=== PATIENT | male | born 1940 | race Caucasian/White ===

== ENCOUNTER 2016-11-22 10:51 | Inpatient (IN) | payer OTHER ==
[~2016-11-22] VITALS: Ht 167.6 cm; Wt 66.7 kg
[~2016-11-22 10:51] MED LIST: ASPIRIN CHILDRE81 MG PO; COLACE100 MG PO; FEOSOL65 MG PO; FISH OIL CONC1000 MG PO; IRON325 M1 PO; MIRTAZAPINE45 MG PO; MULTIVITAMIN1 TAB PO; PERCOCET 325 MG1 TA2 PO; PROS5 PO; ROXICODONE5 MG PO; SUPER B COMPLEX PO; TOPCARE OMEPRAZ20 MG PO; TYLENOL500 MG PO; VITAMIN C500 M3 PO; VITAMIN D31000 IU PO; ZIAC 5 MG-6.251 TAB PO
--- NOTE | 2016-11-22 11:00 | NUR ---
PT TO ED C/O LT SIDED ABD PAIN X1 WEEK. DENIES ANY N/V. NOTED PAIN WITH PALPATION, DENIES ANY INJURY. PT IS VERY [place]. DENIES ANY MED HX.
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
--- NOTE | 2016-11-22 12:22 | NUR ---
PT TO ROOM 22 IN W/C, MATILDE DUMONT AT BEDSIDE FOR EVAL
[2016-11-22 13:03] LABS: ABSOLUTE BASOPHIL COUNT 0 /CUMM (0.0-0.2); ABSOLUTE EOSINOPHIL COUNT 0 /CUMM (0.0-0.7); ABSOLUTE GRANULOCYTE CT 6.2 /CUMM (1.4-6.5); ABSOLUTE LYMPH COUNT 0.8 /CUMM (1.2-3.4); ABSOLUTE MONOCYTE COUNT 0.8 /CUMM (0.10-0.60); BASOPHIL % 0.3 % (0.0-2.0); EOSINOPHIL % 0.2 % (0-5); GRANULOCYTE % 79.4 % (42.2-75.2); HEMATOCRIT 33.6 % (42-52); MEAN CORPUSCULAR HGB 29.3 PG (27.0-31.0); MEAN CORPUSCULAR HGB CONC 33.2 G/DL (33.0-37.0); MEAN CORPUSCULAR VOLUME 88.1 FL (80.0-94.0); MEAN PLATELET VOLUME 7.8 FL (7.4-10.4); PLATELET COUNT 225 /CUMM (130-400); RBC DISTRIBUTION WIDTH 15.8 % (11.5-14.5); RED BLOOD CELL CT 3.81 /CUMM (4.70-6.10); WHITE BLOOD CELL COUNT 7.9 /CUMM (4.8-10.8)
--- NOTE | 2016-11-22 13:15 | NUR ---
PT SEEN BY DR PHILIPPE. STATING HE CANNOT PROVIDE URINE SAMPLE AT THIS TIME.
--- NOTE | 2016-11-22 13:41 | NUR ---
CRITICAL TEST RESULTS [id number] SHANNAN COLMENARES 76 Vanes[address] TESTS AND RESULTS: LACTIC 2.1 Results received and read back by: ELENI LEE Results received date and time: 11/22/16 1341 The following provider was notified of the results, and read the results back: MATILDE DUMONT Notified date and time: 11/22/16 at 1340
--- NOTE | 2016-11-22 14:08 | NUR ---
PT TO CT SCAN. IVF INFUSING.
--- NOTE | 2016-11-22 15:12 | CT SCAN REPORT ---
EXAMINATION: CT ABDOMEN AND PELVIS WITHOUT CONTRAST CLINICAL INFORMATION: Left-sided pain, evaluate for diverticulitis. History of lymphoma. COMPARISON: 10/21/2008. TECHNIQUE: Multidetector volumetric imaging was performed from the superior aspect of the liver through the pubic symphysis. Sagittal and coronal reformatted images were obtained on the technologist's workstation. DLP: 321 mGy-cm FINDINGS: LUNG BASES: The heart appears mildly enlarged with extensive atherosclerotic coronary calcification. There is bibasilar atelectasis left side greater than right. LIVER AND SPLEEN: Unremarkable. PANCREAS GALLBLADDER AND BILIARY TREE: The pancreas and biliary tree appear unremarkable in this postcholecystectomy patient. KIDNEYS, URETERS, AND ADRENALS: There are postsurgical changes consistent with a right-sided nephrectomy. No focal left-sided renal masses are seen. A small exophytic left upper pole renal cyst is again noted. Tiny calcifications are likely vascular. URINARY BLADDER: Unremarkable. GI TRACT: Stomach and small bowel appear unremarkable. There are postsurgical changes suggesting a previous right-sided hemicolectomy with an anastomosis in the transverse colon which appears widely patent without evidence of small bowel obstruction. There is extensive diverticulosis throughout the remaining left colon with mild inflammatory changes in the mid to distal descending colon on the left side most consistent with acute diverticulitis without evidence of a focal fluid collection to suggest an abscess at this time. PERITONEAL CAVITY: There is no intraperitoneal free air or free fluid identified at this time. RETROPERITONEUM: There is extensive atherosclerotic aortic calcification without aneurysmal dilatation, post right-sided nephrectomy changes, there is no evidence of lymphadenopathy. PELVIC ORGANS: Prostate appears moderately enlarged. Urinary bladder unremarkable. OSSEOUS STRUCTURES: No focal destructive or sclerotic osseous lesions are identified. There are chronic-appearing L1 and L3 central compression deformities unchanged. There is an old healed inferior pubic ramus fracture on the right. ANTERIOR ABDOMINAL WALL AND SOFT TISSUES: Unremarkable without evidence of an underlying hernia or adenopathy. IMPRESSION: 1. Postsurgical changes with extensive diverticulosis of the left colon with findings most consistent with acute diverticulitis in the mid distal descending colon. 2. Other findings as noted.
--- NOTE | 2016-11-22 15:25 | NUR ---
BLOOD DRAWN AND SENT TO LAB 1 ESPIN[facility]
--- NOTE | 2016-11-22 16:20 | NUR ---
HOUSE STAFF AT BEDSIDE. URINE TRIO SENT.
--- NOTE | 2016-11-22 16:48 | PN- Att Addend ---
Attending MD Review Statement Attending Statement Attending MD Statement: examined this patient, discuss w/resident/PA/EMERGENCY DEPARTMENT AIDE, agreed w/resident/PA/EMERGENCY DEPARTMENT AIDE, reviewed EMR data (avail), discussed w/nursing Attending Assessment/Plan: 76 yr old male with pmh of colon cancer s/p colostomy which was reversed in the past presented to the ED with c/c of abdominal pain left side going on for one week. Pt says that the pain became worse last night and he could not sleep. Pt also complained of nausea and chills. CT scan in ER shows diverticulitis. ER gave rocephin and flagyl. Acute diverticulitis- admit to medicine. Pt does not f/u with his pcp. start on ceftriaxone and flagyl. Keep on clear liquid diet for now. Zofran prn for nausea. Prn pain meds . will need outpt GI f/u once diverticulitis resolves to have a f/u colonoscopy. d/w pt the care plan.
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
--- NOTE | 2016-11-22 16:56 | Admission Certification ---
Admission Certification Certification Statement - As attending physician, I certify that at the time of - admission, based on clinical presentation, severity of - symptoms, need for further diagnostic testing and - therapeutic interventions, and risk of adverse outcomes - without in-hospital treatment, in my clinical assessment, - this patient requires an acute hospital stay for a minimum - of two nights or longer. I have also considered psychsocial - factors such as support system, advanced age, financial - issues, cognitive issues, and failed out-patient treatments, - past re-admission history, safety of patient, and lack of - compliance as applicable. Specific rationale supporting this admission is: acute diverticulitis in pt with pmh of colon cancer and nausea unable to tolerate po
--- NOTE | 2016-11-22 18:04 | NUR ---
AWAITING BED ASSIGNMENT. REFUSES ZOFRAN OR PAIN MEDS, AWARE OF PRN ORDERS. ALSO REFUSING PO, WATER AND JUICE PROVIDED AT BEDSIDE. USING URINAL INDEPENDENTLY PRN. NO COMPLAINTS.
--- NOTE | 2016-11-22 18:32 | NUR ---
PT ASSIGNED TO ROOM 209 BED 1
--- NOTE | 2016-11-22 19:08 | NUR ---
REPORT CALLED TO [facility] ON [facility], BED IS READY, TRANSPORT BOOKED. PT AWARE OF PENDING TRANSFER, NO COMPLAINTS, CONTS TO DECLINE PRN MEDS.
[2016-11-22 20:02] VITALS: BP 140/90
--- NOTE | 2016-11-22 20:49 | NUR ---
RECEIVED PATIENT FROM ED. ALERT AND ORIENTED TIMES 3, VSS, AFEBRILE. PT [place]. 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 DID NOT BRING TO HOSPITAL. LUNG SOUNDS CLEAR, ON RA. NO FALL HISTORY. LIVES INDEPENDENTLY. SCAR TO ABDOMEN FROM PREVIOUS SURGERY. TENDER IN [place]. DOES NOT WANT ANY PAIN MEDS AT THIS TIME. SKIN INTACT, LUNG SOUNDS CLEAR. ORIENTED TO 2NB, CALL [facility] WITHIN REACH
[2016-11-22 22:21] VITALS: BP 138/86
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
[2016-11-23 07:34] VITALS: BP 128/62
[2016-11-23 08:48] LABS: ABSOLUTE BASOPHIL COUNT 0 /CUMM (0.0-0.2); ABSOLUTE EOSINOPHIL COUNT 0 /CUMM (0.0-0.7); ABSOLUTE GRANULOCYTE CT 5.4 /CUMM (1.4-6.5); ABSOLUTE MONOCYTE COUNT 0.6 /CUMM (0.10-0.60); BASOPHIL % 0.2 % (0.0-2.0); EOSINOPHIL % 0.7 % (0-5); GRANULOCYTE % 77.2 % (42.2-75.2); HEMATOCRIT 29.2 % (42-52); MEAN CORPUSCULAR HGB 29.1 PG (27.0-31.0); MEAN CORPUSCULAR HGB CONC 33.2 G/DL (33.0-37.0); MEAN CORPUSCULAR VOLUME 87.7 FL (80.0-94.0); MEAN PLATELET VOLUME 8.6 FL (7.4-10.4); PLATELET COUNT 199 /CUMM (130-400); RBC DISTRIBUTION WIDTH 16.1 % (11.5-14.5); RED BLOOD CELL CT 3.33 /CUMM (4.70-6.10); WHITE BLOOD CELL COUNT 7.1 /CUMM (4.8-10.8)
[2016-11-23 13:45] VITALS: BP 138/70
--- NOTE | 2016-11-23 21:21 | NUR ---
ALERT AND ORIENTED X 3. ON ROOM AIR. NO SHORTNESS OF BREATH NOTED VITAL SIGNS STABLE. DENIES CHEST PAIN. + PULSES. DENIES NUMBNESS/TINGLING SKIN C/D/I. WEAK GAIT NOTED. PATIENT HARD OF HEARING. PATIENT RESTING AT THIS TIME. WILL CONTINUE TO MONITOR
[2016-11-23 21:54] VITALS: BP 140/60
[2016-11-24 02:57] LABS: ABSOLUTE BASOPHIL COUNT 0 /CUMM (0.0-0.2); ABSOLUTE EOSINOPHIL COUNT 0.1 /CUMM (0.0-0.7); ABSOLUTE GRANULOCYTE CT 5.4 /CUMM (1.4-6.5); ABSOLUTE LYMPH COUNT 1.7 /CUMM (1.2-3.4); ABSOLUTE MONOCYTE COUNT 0.7 /CUMM (0.10-0.60); BASOPHIL % 0 % (0.0-2.0); EOSINOPHIL % 0.9 % (0-5); GRANULOCYTE % 68.5 % (42.2-75.2); HEMATOCRIT 31.7 % (42-52); MEAN CORPUSCULAR HGB 28.8 PG (27.0-31.0); MEAN CORPUSCULAR HGB CONC 32.5 G/DL (33.0-37.0); MEAN CORPUSCULAR VOLUME 88.4 FL (80.0-94.0); MEAN PLATELET VOLUME 7.8 FL (7.4-10.4); PLATELET COUNT 224 /CUMM (130-400); RBC DISTRIBUTION WIDTH 15.9 % (11.5-14.5); RED BLOOD CELL CT 3.59 /CUMM (4.70-6.10); WHITE BLOOD CELL COUNT 7.9 /CUMM (4.8-10.8)
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
[2016-11-24 03:11] VITALS: BP 110/58
--- NOTE | 2016-11-24 04:06 | NUR ---
PT TRANSFERED FROM 2NB. PT ALERT AND ORIENTED, OSAGE. 2l NC. DENIES SOB. lcta. VSS. C/O RIGHT CHEST PAIN. SINUS TACH ON THE MONITOR. _+ BS X 4. SKIN CDI. STAT CTA ORDERED. IV #20 IN LAC EXTABLISHED. PT DOWN TO CAT SCAN. WILL CONTINUE TO MONITOR.
--- NOTE | 2016-11-24 04:14 | RADIOLOGY REPORT ---
EXAMINATION: XR PORTABLE CHEST CLINICAL INFORMATION: Atelectasis and effusion. COMPARISON: CT abdomen and pelvis 11/22/2016. TECHNIQUE: Portable AP semiupright view of the chest was obtained. FINDINGS: Lung volumes are low and there are ill-defined bibasilar airspace opacities, greater on the left side which most likely represent a manifestation of subsegmental atelectasis. Small left effusion is suspected. The cardiac silhouette and upper mediastinal contours unremarkable. No acute osseous finding. IMPRESSION: Lung volumes are low and there is bibasilar subsegmental atelectasis. Possible small left effusion. No evidence of overt consolidative disease.
--- NOTE | 2016-11-24 05:44 | CT SCAN REPORT ---
EXAMINATION: CT ANGIOGRAM OF THE CHEST WITH AND WITHOUT CONTRAST (CT PULMONARY ANGIOGRAM FOR PE) CLINICAL INFORMATION: Tachycardia and shortness of breath. Suspected acute pulmonary embolism. COMPARISON: Chest radiograph 11/16/2016. TECHNIQUE: Prior to contrast administration, noncontrast localization images were obtained. Subsequently, multidetector volumetric imaging was performed from the thoracic inlet to below the diaphragms following the administration of 72 mL Optiray 350 intravenous contrast. No contrast reaction reported. Sagittal, coronal, and MIP oblique sagittal reformatted images were obtained on the CT workstation, uploaded to PACS, and reviewed. Total exam dose-length product 467.99 mGy-cm. FINDINGS: The timing of the contrast injection provides adequate opacification of the pulmonary arteriovascular. There is no central luminal filling defect to suggest the presence of an acute pulmonary embolism. Lung volumes are low and there is mild dependent subsegmental atelectasis. No overt consolidative disease or effusion. No pneumothorax. The trachea and major airways are patent. There is a small eccentric nodular lesion involving the left mainstem bronchus best illustrated on axial image 186 of 491 series 3. Grossly there are no pathologically enlarged peribronchial, mediastinal, or axillary lymph nodes. The chest wall is grossly intact. Numerous old healed right rib fractures are noted and there is an old healed left clavicular fracture. Extrathoracic soft tissues are unremarkable. Limited visualization of the upper abdomen reveals chronic changes of a right nephrectomy. Adrenal glands are normal. IMPRESSION: There is no evidence of acute pulmonary embolism. No discrete abnormal finding to provide an explanation for this patient's tachycardia and shortness of breath. Lung volumes are low and there is bibasilar subsegmental atelectasis with no evidence of overt consolidation, effusion, or pneumothorax. Of note there is an eccentric nodular lesion involving the left mainstem bronchus that is suspected to represent a small focus of aspirated fluid or debris. The possibility of a polyp or other airway mass cannot be definitively excluded on the basis of this examination. VTE: Negative.
--- NOTE | 2016-11-24 08:50 | NUR ---
AT 0200, THIS SN ENTERED PATIENT ROOM TO EMPTY URINAL. PATIENT IS VERY HARD OF HEARING AND DID NOT HEAR SN ENTER. PATIENT WAS STARTLED AND SAT FORWARD QUICKLY. THEN GRABBED AT HIS RIGHT CHEST AND GRIMACED. PATIENT CONTINUED TO HAVE COMPLAINT OF SEVERE PAIN AFTER 2-3 MINUTES SO VITALS WERE TAKEN AND BP WAS 158/80, HR 101, 92% ON ROOM AIR, 20 RR AND TEMP 98.7. PRODUCTION TRAINER AND MOD WERE CALLED AND PRODUCTION TRAINER ARRIVED TO ASSESS PATIENT. HR INCREASED TO 118. STAT TROPONINS, D-DIMER, MAG, CBC AND BMP WERE DRAWN. STAT EKG DONE. 325MG OF ASPIRIN AND 2MG IV MORPHINE ADMINISTERED AND PATIENT WAS STARTED ON 2L OF O2. PATIENT'S PAIN DID NOT IMPROVE WITH ABOVE INTERVENTIONS. STAT CXRAY WAS ALSO DONE. AND PATIENT TRANSFERRED STAT TO TELEMETRY PER ORDERS.
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
[2016-11-24 14:37] VITALS: BP 110/60
[2016-11-24 18:37] VITALS: BP 140/80
[2016-11-24 21:11] VITALS: BP 130/70
[2016-11-25 06:55] VITALS: BP 122/70
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
[2016-11-25 14:18] VITALS: BP 138/64
--- NOTE | 2016-11-25 15:55 | Patient Discharge Instructions ---
Discharge Instructions General Discharge Information You were seen/treated for: Acute diverticulitis Special Instructions: Please take your medications as prescribed. Please visit your primary care physician within 7-10 days of discharge. Please return to emergency if symptoms worsen. Diet Continue normal diet: No Recommended Diet: Chopped food and regular thin liquid Regular diet Activity Full Activity/No Limits: No Activity Self Limited: Yes Acute Coronary Syndrome Inclusion Criteria At DC or during hospital stay patient has or had the following: ACS DIAGNOSIS No Discharge Core Measures Meds if any: Prescribed or Continued at Discharge Meds if any: NOT Prescribed or Continued at Discharge Congestive Heart Failure Inclusion Criteria At DC or during hospital stay patient has or had the following: CHF DIAGNOSIS No Discharge Core Measures Meds if any: Prescribed or Continued at Discharge Meds if any: NOT Prescribed or Continued at Discharge Cerebrovascular accident Inclusion Criteria At DC or during hospital stay patient has or had the following: CVA/TIA Diagnosis No Discharge Core Measures Meds if any: Prescribed or Continued at Discharge Meds if any: NOT Prescribed or Continued at Discharge Venous thromboembolism Inclusion Criteria VTE Diagnosis No VTE Type NONE VTE Confirmed by (Test) NONE Discharge Core Measures - Per Current guidelines, there needs to be overlap - treatment for the first 5 days of Warfarin therapy. - If discharged on Warfarin prior to 5 days of - overlap therapy, the patient will need to be - assessed for post discharge needs including - *Post discharge parental anticoagulation - *Warfarin and/or parental anticoagulation education - *Follow up date to check INR post discharge At least 5 days overlap therapy as Inpatient No Meds if any: Prescribed or Continued at Discharge Note: Overlap Therapy is Warfarin and Anticoagulant Meds if any: NOT Prescribed or Continued at Discharge
[2016-11-25] MEDS ORDERED: CIPRO500 M1 PO (16:01)
[2016-11-25] MEDS ORDERED: ZOFRAN4 M2 PO (16:01)
[2016-11-25] MEDS ORDERED: FLAGYL500 MG PO (16:01)
[2016-11-25 22:35] VITALS: BP 150/82
[2016-11-26 07:01] VITALS: BP 140/80
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
[2016-11-26] MEDS ORDERED: FLAGYL500 MG PO ×2 (10:22→12:11)
[2016-11-26] MEDS ORDERED: CIPRO500 M1 PO ×2 (10:22→12:10)
[2016-11-26] MEDS ORDERED: ZOFRAN4 M2 PO (12:11)
== END 2016-11-26 12:47 | disposition home health service (06) | DRG 392 ==
LOC: ERH 10:51 → 2NB 16:12 → ERHI 16:12 → 2NA 16:12 → ENRESERV 18:27 → ENTRNSPT 19:07 → 2NB 19:43 → CMPTRNSPT 19:55 → 2NB 11-23 21:11 → 1NO 11-24 03:09 → 2NA 11-24 18:25 → ENPENDDIS 11-26 10:56 → 2NA 11-26 12:47
PROVIDERS: Internal Medicine; Physician Assistant Medical; Student in an Organized Health Care Education/Training Program; ADMIT Internal Medicine
DX: K57.32 Diverticulitis of large intestine without perforation or abscess without bleeding (principal); E86.0 Dehydration; D64.9 Anemia, unspecified; F10.21 Alcohol dependence, in remission; N18.9 Chronic kidney disease, unspecified; Z85.21 Personal history of malignant neoplasm of larynx; Z85.038 Personal history of other malignant neoplasm of large intestine
CPT/HCPCS: 2NAP; 2NBSP; 36415; 74176; 81001; 82436; 93005; 93010; 96374; 97110-GO; 97116-GO; 97161-GP; G0480; J0131; J0696; J1644; J2405